=== PATIENT | female | born 1945 | race Caucasian/White ===

== ENCOUNTER 2017-03-06 00:15 | Day surgery (SDC) | payer MEDICARE, OTHER ==
[~2017-03-06 00:15] MED LIST: ACET325 PO; ALFALFA250 MG PO; ALLO100 PO; AMLO10 PO; ASPI81CH PO; AZAT50 PO; AZATHIOPRINE; CARV3.125 PO; CARV6.25 PO; COLE625 PO; CYAN1000I IM; Calcium-Magnes1 EAC6 PO; Coq-10100 MG PO; Cranberry405 MG PO; ENTOCORT EC; Entocort EC 3 mg3 MG PO; FERR325 PO; GARLIC PO; Ginger500 MG PO; Ginkgo Biloba120 MG PO; HAWTHORN150 MG PO; KELP150 MC1 PO; LEVSOD75 PO; MESA250ER; MESA250ER PO; MULTI VITAMIN1 EACH PO; NALT50 PO; Norvasc2.5 MG PO; PROBIOTIC 15 B1 EACH PO; PROBIOTIC1 EAC1 PO; TUMERIC PO; VITAMIN A 25000 UNIT PO; Vitamin D2000 UNIT PO; Vitamin K100 MCG PO; WARF2.5 PO; WARF5 PO; [UNRECOGNIZED DRUG - OTHER] PO; [UNRECOGNIZED DRUG - REMARK]
== END 2017-03-06 15:07 | disposition home or self-care (01) ==
LOC: ATC 00:15
DX: K50.80 Crohn's disease of both small and large intestine without complications (principal); R19.7 Diarrhea, unspecified; E03.9 Hypothyroidism, unspecified; E78.5 Hyperlipidemia, unspecified
CPT/HCPCS: 96413; J3380; J7050; Q0163

== ENCOUNTER 2017-05-04 | Day surgery (SDC) | END 2017-05-04 15:10 | disposition home or self-care (01) ==

== ENCOUNTER 2017-06-29 00:48 | Day surgery (SDC) | payer MEDICARE, OTHER | END 2017-06-29 14:51 | disposition home or self-care (01) | LOC: ATC 00:48 | DX: K50.80 Crohn's disease of both small and large intestine without complications (principal); E03.9 Hypothyroidism, unspecified; Z86.711 Personal history of pulmonary embolism; Z79.01 Long term (current) use of anticoagulants | CPT/HCPCS: 96365; J3380; J7050 ==

== ENCOUNTER 2017-08-21 00:09 | Day surgery (SDC) | payer MEDICARE, OTHER | END 2017-08-21 15:08 | disposition home or self-care (01) | LOC: ATC 00:09 | DX: K50.80 Crohn's disease of both small and large intestine without complications (principal); Z88.2 Allergy status to sulfonamides; Z88.0 Allergy status to penicillin; Z88.8 Allergy status to other drugs, medicaments and biological substances; Z79.899 Other long term (current) drug therapy | CPT/HCPCS: 96365; J3380; J7050 ==

== ENCOUNTER 2018-06-26 11:53 | Emergency (ER) | payer MEDICARE, OTHER ==
[~2018-06-26] VITALS: Ht 160 cm; Wt 86.2 kg
== END 2018-06-26 13:44 | disposition home or self-care (01) ==
LOC: ER 11:53
DX: S00.83XA Contusion of other part of head, initial encounter (principal); W22.8XXA Striking against or struck by other objects, initial encounter; Z79.899 Other long term (current) drug therapy; Z79.01 Long term (current) use of anticoagulants
CPT/HCPCS: 70450; 99283-25